=== PATIENT | female | born 1995 | race Caucasian/White ===

== ENCOUNTER 2019-05-24 21:31 | Emergency (ER) | payer MEDICAID ==
[~2019-05-24] VITALS: Ht 160 cm; Wt 92.5 kg
[2019-05-24 21:34] VITALS: Ht 160 cm; Wt 92.5 kg
[2019-05-24 22:44] LABS: BASOPHIL % 0.1 % (0-2); PLATELET COUNT 264 x10^3mcL (130-400); RED CELL DISTRIBUTION WIDTH 14.2 % (11.5-14.5)
[2019-05-25 00:19] VITALS: BP 113/75
== END 2019-05-25 00:19 | disposition home or self-care (01) ==
LOC: ED 21:31
PROVIDERS: Emergency Medicine
DX: N92.1 Excessive and frequent menstruation with irregular cycle (principal); R21 Rash and other nonspecific skin eruption; F17.210 Nicotine dependence, cigarettes, uncomplicated
CPT/HCPCS: 36415; 99406